=== PATIENT | female | born 1960 | race Caucasian/White ===

== ENCOUNTER 2017-04-06 12:19 | Emergency (ER) | payer BC ==
[2017-04-06 13:18] VITALS: BP 152/78
--- NOTE | 2017-04-06 16:31 | UC ---
Erika Zayas Nilda, scribed for Con Mendez MD on 04/06/17 at 1346 . Eye Complaint HPI - HPI Summary HPI Summary: This patient is a 57 year old F presenting to [facility] with a chief complaint of constant pruritus and drainage in bilat eyes since last night. This morning patient woke up with crusty yellow discharge in bilat eyes and eyelids were stuck together. The patient rates the pain 2/10 in severity. Symptoms aggravated and alleviated by nothing. Patient denies fever, chills, and sore throat. - History of Current Complaint Chief Complaint: UCEye Stated Complaint: EYE ISSUE Time Seen by Provider: 04/06/17 13:24 Hx Obtained From: Patient Hx Last Menstrual Period: ablasion 2011 Onset/Duration: Sudden Onset, Lasting Days, Still Present Timing: Constant Severity Currently: Mild Pain Intensity: 2 Pain Scale Used: 0-10 Numeric Location of Injury: Conjunctiva Aggravating Factor(s): Nothing Alleviating Factor(s): Nothing Associated Signs And Symptoms: Positive: Drainage (Purulent). Negative: Fever - Allergies/Home Medications Allergies/Adverse Reactions: Allergies Allergy/AdvReac Type Severity Reaction Status Date / Time morphine Allergy Swelling Verified 04/06/17 13:18 Of Face,Lips,& Throat Home Medications: Home Medications Gabapentin CAP(*) [Neurontin 100 mg CAP(*)] 1 tab PO BID 04/06/17 [History Confirmed 04/06/17] busPIRone TAB* [Buspar TAB*] 1 tab PO BID 04/06/17 [History Confirmed 04/06/17] PMH/Surg Hx/FS Hx/Imm Hx Endocrine History: Dyslipidemia Cardiovascular History: Hypertension Respiratory History: Other Other Respiratory History: sleep apnea GI/ History: Other Other GI/ History: obesity - Surgical History Surgical History: Yes Surgery Procedure, Year, and Place: uterine ablation may 2011. 1985. tonsillectomy as a child. gall bladder removed 2002 - Family History Known Family History: Positive: Hypertension, Diabetes - Social History Alcohol Use: Occasionally Substance Use Type: None Smoking Status (MU): Never Smoked Tobacco Review of Systems Constitutional: Other - negative fever and chills Eyes: Drainage, Eye Redness, Other - pruritus ENT: Other - negative sore throat All Other Systems Reviewed And Are Negative: Yes Physical Exam Triage Information Reviewed: Yes Vital Signs: Initial Vital Signs Temp 97.6 F 04/06/17 13:15 Pulse 50 04/06/17 13:15 Resp 12 04/06/17 13:15 BP 152/78 04/06/17 13:15 Pulse Ox 97 04/06/17 13:15 Vital Signs Reviewed: Yes - Additional Comments VITAL SIGNS: Reviewed. GENERAL: Patient is a well developed and nourished F who is lying comfortable in the stretcher. Patient is not in any acute respiratory distress. HEAD AND FACE: Normocephalic EYES: PERRLA, EOMI x 2. Injected conjunctiva bilat, left more than right EARS: Hearing grossly intact. MOUTH: Oropharynx within normal limits. NECK: Supple, trachea is midline, no adenopathy, no JVD, no carotid bruit. CHEST: Symmetric, no tenderness at palpation LUNGS: Clear to auscultation bilaterally. No wheezing or crackles. CVS: Regular rate and rhythm, S1 and S2 present, no murmurs or gallops appreciated. ABDOMEN: Soft, non-tender. Bowel sounds are normal. No abdominal abnormal pulsations. EXTREMITIES: Full ROM in all major joints, no edema, no cyanosis or clubbing. NEURO: Alert and oriented x 3. No acute neurological deficits. Speech is normal and follows commands. SKIN: Dry and warm Eye Complaint Course/Dx - Course Course Of Treatment: This patient is a 57 year old F presenting to [facility] with a chief complaint of constant pruritus and drainage in bilat eyes since last night. This morning patient woke up with crusty yellow discharge in bilat eyes and eyelids were stuck together. The patient rates the pain 2/10 in severity. Symptoms aggravated and alleviated by nothing. Patient denies fever, chills, and sore throat. Medications given. I discussed all the findings and test results with the patient. Patient was instructed to return to the urgent care or go to ER immediately if any of the symptoms return or worsens. Plan of care was discussed with the patient and patient understands and agrees. All questions were answered to patient satisfaction. There were no further complaints or concerns. Patient is D/C home with Dx of conjunctivitis. The patient was found to have increase BP in UC. The patient will follow up with PCP for better control of BP. - Differential Dx/Diagnosis Differential Diagnosis/HQI/PQRI: Conjunctivitis Provider Diagnoses: conjunctivitis Discharge - Discharge Plan Condition: Stable Disposition: HOME Prescriptions: Ciprofloxacin 0.3% OPTH.RANDAL* [Cipro 0.3% Opth*] 2 drop BOTH EYES Q4H #1 btl Patient Education Materials: Conjunctivitis (ED) Referrals: [facility] [place] [facility] [Outside] No Primary Care Phys,NOPCP [Primary Care Provider] - Additional Instructions: Take medications as instructed Increase your fluid intake Return to the if symptoms worsen FOLLOW UP WITH YOUR PRIMARY CARE PROVIDER WITHIN ONE WEEK FOR HIGH BLOOD PRESSURE NOTED TODAY. The documentation as recorded by the Erika oviedo Nilda accurately reflects the service I personally performed and the decisions made by , Con Mendez MD.
== END 2017-04-06 13:37 | disposition home or self-care (01) ==
LOC: UCEAST 12:19
DX: H10.9 Unspecified conjunctivitis (principal); I10 Essential (primary) hypertension; E78.5 Hyperlipidemia, unspecified; E66.9 Obesity, unspecified
CPT/HCPCS: 99202; G0463